=== PATIENT | female | born 1985 | race Caucasian/White ===

== ENCOUNTER 2016-07-03 23:25 | Emergency (ER) | payer SELFPAY ==
--- NOTE | 2016-07-04 05:51 | ER ---
ADMIT: 07/03/2016 RM/LOC: ER [facility] MR#: [id number] [address] [facility] [id number] MARII LOYOLA [address] [place] [address] Emergency Room Report SEX: F AGE: 30 : 1985 DATE: 07/03/2016 The patient is a 30-year-old female, complaining of escalating throbbing headache associated with photophobia that began earlier today, prior history of migraines and aseptic meningitis. Exam remarkable for nontoxic, afebrile female with no nuchal meningismus or delirium. Received IV fluids, Zofran, Toradol, DHE, magnesium, and Reglan with marked improvement of pain from a 10 to less than 4. Advised fluid push, caffeine, naproxen, and follow up Dr. Powell as needed. Samuel Arriola MD/ elizabeth JOB #: [id number] CC: Samuel Arriola MD, Attending Physician Nikolay Powell MD, Family Physician Nikolay Powell MD
== END 2016-07-04 02:00 | disposition home or self-care (01) ==
LOC: ER 23:25
DX: G43.909 Migraine, unspecified, not intractable, without status migrainosus (principal)